=== PATIENT | female | born 1955 | race Caucasian/White ===

== ENCOUNTER 2016-12-09 07:47 | Emergency (ER) | payer OTHER ==
[~2016-12-09] VITALS: Ht 162.6 cm; Wt 78.5 kg
[~2016-12-09 07:47] MED LIST: ATI.5 PO; IBUP-974 PO; IMI50 PO; MECL-272 PO; METO5SOL19 PO; OMEP40EC1 PO; PANT40EC PO; SIMV20TA1 PO
[2016-12-09 07:53] VITALS: BP 140/76
[2016-12-09] MEDS: DICYCLOMINE HCL LIQUID 20 MG, ALUMINUM HYD/MAG/SIMETHICONE 30 ML, LIDOCAINE VISCOUS 2% ... PO ONE ×3 (08:38)
[2016-12-09 09:10] VITALS: BP 140/76
== END 2016-12-09 09:05 | disposition home or self-care (01) ==
LOC: MED 07:47
DX: N39.0 Urinary tract infection, site not specified (principal); Z88.5 Allergy status to narcotic agent; Z88.8 Allergy status to other drugs, medicaments and biological substances; Z88.6 Allergy status to analgesic agent; K21.9 Gastro-esophageal reflux disease without esophagitis; Z90.49 Acquired absence of other specified parts of digestive tract; Z90.710 Acquired absence of both cervix and uterus
CPT/HCPCS: 81002; 99283

== ENCOUNTER 2016-12-31 08:55 | Emergency (ER) | payer OTHER ==
[~2016-12-31] VITALS: Ht 157.5 cm; Wt 77.1 kg
[2016-12-31 09:45] VITALS: BP 146/89
--- NOTE | 2016-12-31 09:48 | NUR ---
PT AMBULATED TO BED7
--- NOTE | 2016-12-31 09:50 | NUR ---
61/F BIB SELF C/O LBP THAT RADIATES DOWN LEFT LEG X4 DAYS. RECENT HX OF UTI. PT STS TOOK ANTIBIOTIC X 3DAYS BUT NOT HELP. SKIN IS PINK/WARM/DRY; AAOX4 WITH EVEN AND STEADY GAIT; LUNGS CLEAR BL; HR EVEN AND REGULAR; PT DENIES ANY FEVER, CP, SOB, OR COUGH AT THIS TIME; PATIENT STATES PAIN OF 10/10 AT THIS TIME; VSS; PATIENT POSITIONED FOR COMFORT; HOB ELEVATED; BEDRAILS UP X2; BED DOWN. ER MD MADE AWARE OF PT STATUS.
--- NOTE | 2016-12-31 10:03 | NUR ---
Patient being evaluated by DR SNELL at bedside.
[2016-12-31] MEDS ORDERED: KETOROLAC 60 MG/2 ML VIAL IM ONE (10:10)
--- NOTE | 2016-12-31 10:49 | NUR ---
Patient appears to be resting comfortably in bed. BP142/73; DENIES HEADACHE OR DIZINESS AT THIS TIME; MD AWARE. Respirations even and unlabored.WILL CONTINUE TO MONITOR.
--- NOTE | 2016-12-31 11:09 | NUR ---
Patient being reevaluated by DR SNELL at bedside.
--- NOTE | 2016-12-31 11:15 | NUR ---
Patient being REevaluated by DR SNELL at bedside.
--- NOTE | 2016-12-31 11:25 | NUR ---
PT TAKEN TO [facility] , ACCOMPANIED BY MACHINE DEBURRER.
--- NOTE | 2016-12-31 12:11 | NUR ---
PT BACK FROM [facility].
--- NOTE | 2016-12-31 12:55 | NUR ---
Patient discharged with v/s stable. Written and verbal after care instructions given and explained. Patient verbalized understanding. Ambulatory with steady gait. All questions addressed prior to discharge. Advised to follow up with PMD.
[2016-12-31 12:56] VITALS: BP 124/81
== END 2016-12-31 12:55 | disposition home or self-care (01) ==
LOC: MED 08:55
DX: M54.40 Lumbago with sciatica, unspecified side (principal); G89.29 Other chronic pain; M51.37 Other intervertebral disc degeneration, lumbosacral region; K21.9 Gastro-esophageal reflux disease without esophagitis; Z88.2 Allergy status to sulfonamides; Z88.8 Allergy status to other drugs, medicaments and biological substances; Z79.899 Other long term (current) drug therapy; Z88.1 Allergy status to other antibiotic agents; Z88.5 Allergy status to narcotic agent
CPT/HCPCS: 72110; 72220; 96372; 99284; J1885

== ENCOUNTER 2017-04-24 07:25 | Emergency (ER) | payer OTHER ==
[~2017-04-24] VITALS: Ht 160 cm; Wt 73.9 kg
[2017-04-24 07:37] VITALS: BP 149/74
--- NOTE | 2017-04-24 07:41 | NUR ---
PT TRIAGED, AMBULATED TO ER OVERFLOW.
--- NOTE | 2017-04-24 07:51 | NUR ---
PATIENT PRESENTS TO ED WITH COUGH, NASAL/CHEST CONGESTION,VELIA EAR ITCHING/ACHE X2 WKS .DENIES N/V/D; SKIN IS PINK/WARM/DRY; AAOX4 WITH EVEN AND STEADY GAIT; LUNGS CLEAR BL; HR EVEN AND REGULAR; PATIENT STATES PAIN OF 10/10 AT THIS TIME; VSS; PATIENT POSITIONED FOR COMFORT; HOB ELEVATED; BEDRAILS UP X2; BED DOWN. ER MD MADE AWARE OF PT STATUS.
[2017-04-24 08:15] VITALS: BP 149/74
--- NOTE | 2017-04-24 08:16 | NUR ---
Patient discharged with v/s stable. Written and verbal after care instructions given and explained. Patient alert, oriented and verbalized understanding of instructions. Ambulatory with steady gait. All questions addressed prior to discharge. ID band removed. Patient advised to follow up with PMD. Rx of fam/flonase/cortisporin otic kenrick given. Patient educated on indication of medication including possible reaction and side effects. Opportunity to ask questions provided and answered.
== END 2017-04-24 08:16 | disposition home or self-care (01) ==
LOC: MED 07:25
DX: J30.9 Allergic rhinitis, unspecified (principal); R03.0 Elevated blood-pressure reading, without diagnosis of hypertension; K21.9 Gastro-esophageal reflux disease without esophagitis; Z79.899 Other long term (current) drug therapy; Z88.8 Allergy status to other drugs, medicaments and biological substances; Z88.2 Allergy status to sulfonamides; Z88.5 Allergy status to narcotic agent
CPT/HCPCS: 99283

== ENCOUNTER 2017-08-29 14:13 | Emergency (ER) | payer OTHER ==
[~2017-08-29] VITALS: Ht 157.5 cm; Wt 74.8 kg
[2017-08-29 14:17] VITALS: BP 139/77
--- NOTE | 2017-08-29 14:36 | NUR ---
61/F BIB SELF C/O JIMENEZ, LEFT NECK , AND LEFT BACK PAIN, FOR 3 WEEKS. NO TRAUMA NOR INJURY, SEEN IN ER 3 WEEKS AGO.DENIES N/V/D; SKIN IS PINK/WARM/DRY; AAOX4 WITH EVEN AND STEADY GAIT; LUNGS CLEAR BL; HR EVEN AND REGULAR; PT DENIES ANY FEVER OR COUGH AT THIS TIME; PATIENT STATES PAIN OF 9/10 AT THIS TIME; VSS; PATIENT POSITIONED FOR COMFORT; HOB ELEVATED; BEDRAILS UP X2; BED DOWN. ER MD MADE AWARE OF PT STATUS.
[2017-08-29] MEDS ORDERED: KETOROLAC 60 MG/2 ML VIAL IM ONE (14:45)
--- NOTE | 2017-08-29 14:57 | NUR ---
Patient taken to XRAY via wheelchair by tech.
[2017-08-29 15:31] LABS: APPEARANCE,URINE CLEAR (CLEAR); BILIRUBIN,URINE NEGATIVE (NEGATIVE); BLOOD, URINE 2+ (NEGATIVE); COLOR,URINE YELLOW (YELLOW); LEUKOCYTE ESTERASE ,URINE NEGATIVE (NEGATIVE); NITRITE, URINE NEGATIVE (NEGATIVE); PH,URINE 5.5 (5.0-9.0); UGLUCOSE NEGATIVE (NEGATIVE)
--- NOTE | 2017-08-29 16:09 | NUR ---
Patient appears to be resting comfortably in bed. Vital Signs within normal limits. Respirations even and unlabored.will continue to monitor.
[2017-08-29 16:24] LABS: RBC,URINE 0-5 (RARE) /HPF (0-5); WBC,URINE 0-5 (RARE) /HPF (0-5)
[2017-08-29 16:44] VITALS: BP 112/50
== END 2017-08-29 16:44 | disposition home or self-care (01) ==
LOC: MED 14:13
DX: M54.9 Dorsalgia, unspecified (principal); Z88.6 Allergy status to analgesic agent; Z88.1 Allergy status to other antibiotic agents; Z88.8 Allergy status to other drugs, medicaments and biological substances; K21.9 Gastro-esophageal reflux disease without esophagitis
CPT/HCPCS: 72040; 81001; 96372; 99285; J1885

== ENCOUNTER 2022-11-29 07:04 | Emergency (ER) | payer OTHER ==
[~2022-11-29] VITALS: Ht 157.5 cm; Wt 68.0 kg
[~2022-11-29 07:04] MED LIST changes: -MECL-272 PO; +MECL-303 PO; -OMEP40EC1 PO; +OMEP40EC24 PO; +SIMV-372 PO; -SIMV20TA1 PO
[2022-11-29 07:09] VITALS: BP 139/74; PULSE 72; RESP 12; TEMP 97.7; O2SAT 99
--- NOTE | 2022-11-29 07:20 | NUR ---
To bed 11
--- NOTE | 2022-11-29 07:47 | NUR ---
Pt bibs for complaint of rash throughout body. Pt denies pain. Rash is not obvious but pt can show some slight bumps at arm. Pt is a/o x 4, vss, no ss of acute distress, breathing equal and unlabored, speech clear. MD has seen pt. MD gave order for dc. Pt given aci, verbalized understanding. Steady gait witnessed.
== END 2022-11-29 07:47 | disposition home or self-care (01) ==
LOC: MED 07:04
DX: L29.9 Pruritus, unspecified (principal); K21.9 Gastro-esophageal reflux disease without esophagitis; Z88.5 Allergy status to narcotic agent; Z79.1 Long term (current) use of non-steroidal anti-inflammatories (NSAID); Z79.899 Other long term (current) drug therapy
CPT/HCPCS: 99281